=== PATIENT | male | born 1955 | race Caucasian/White ===

== ENCOUNTER 2020-05-01 12:29 | Outpatient (CLI) | payer MEDICARE, SELFPAY ==
--- NOTE | 2020-05-01 13:00 | XR_ITS ---
WS: [id number] SHOULDER RIGHT TECHNIQUE: 3 views of the right shoulder CLINICAL INFORMATION: PAIN IN RIGHT SHOULDER COMPARISON: None. FINDINGS: Mild degenerative arthritis at the AC joint. Normal glenohumeral joint. Moderate narrowing of the sub acromial space. No acute fractures. XR/XR shoulder RT min 2V* [id number] IMPRESSION: 1. Mild degenerative arthritis AC joint. 2. Moderate rotator cuff arthropathy.
== END 2020-05-01 12:30 | disposition home or self-care (01) ==
LOC: RADWPI 12:37
PROVIDERS: PCP Family Medicine; Visit Provider Family Medicine
DX: M19.011 Primary osteoarthritis, right shoulder (principal)
CPT/HCPCS: 73030

== ENCOUNTER 2020-05-04 10:22 | Outpatient (CLI) | payer MEDICARE, SELFPAY ==
--- NOTE | 2020-05-04 10:27 | MM_ITS ---
WS: [id number] BILATERAL DIGITAL DIAGNOSTIC MAMMOGRAM MAMMOGRAPHY WITH CAD CLINICAL INFORMATION: RT BREAST LUMP COMPARISON: None. TECHNIQUE: Bilateral CC, MLO, and ML views. FINDINGS: Scattered fibroglandular densities bilaterally. Palpable marker right breast at the areola. Lobulated soft tissue lesion measuring 2.7 x 2.1 cm deep to the palpable marker. Ultrasound is pending. Left breast is unremarkable. ULTRASOUND BREAST RIGHT TECHNIQUE: Ultrasound right breast focused area of concern. CLINICAL INFORMATION: RT BREAST LUMP COMPARISON: None. FINDINGS: Ultrasound right breast area of concern at the areola. There is a soft tissue lobulated mass with pro minent internal vascularity with some surrounding ductal dilatation or cystic change. This measures a pproximately 3.2 x 2.2 x 2.7 CM. This is suspicious for neoplasm and recommend further evaluation ult rasound-guided biopsy. MM/[place] [id number] IMPRESSION: BI-RADS: 4-Suspicious Finding-Biopsy Should Be Considered FOLLOW UP: US Guided Biopsy Recommended Recommend ultrasound-guided biopsy of the PALPABLE right breast lesion
== END 2020-05-04 10:23 | disposition home or self-care (01) ==
LOC: RADSHAW 10:26
PROVIDERS: PCP Family Medicine; Visit Provider Family Medicine
DX: N63.41 Unspecified lump in right breast, subareolar (principal)
CPT/HCPCS: 76642; 77066

== ENCOUNTER 2020-05-21 12:30 | Outpatient (CLI) | payer MEDICARE, SELFPAY ==
--- NOTE | 2020-05-21 12:42 | US_ITS ---
WS: [id number] ULTRASOUND-GUIDED RIGHT BREAST BIOPSY CLINICAL INFORMATION: LUMP IN R BREAST COMPARISON: None. FINDINGS: The procedure including risks, benefits, and complications were discussed with the patient who agreed to proceed. Using sterile technique patient was prepped and draped in the usual sterile fashion. Aft er 1% lidocaine utilizing real-time ultrasound guidance 5 14-gauge cores were obtained of the right b reast lesion at the areola . Subsequently a titanium clip was placed in the biopsy cavity. No immedia te complications. PATHOLOGY DEMONSTRATES: -Invasive ductal carcinoma. -Gardner Pang grade 2 (score 7). -Ancillary studies have been performed US/[place] [id number] IMPRESSION: 1. Uncomplicated ultrasound-guided right breast biopsy. 2. The pathology demonstrates invasive ductal carcinoma. BI-RADS: 6-Known Biopsy-Proven Malignancy FOLLOW UP: See Report RECOMMEND BREAST SURGERY AND ONCOLOGY CONSULTATION.
[2020-05-28 12:33] LABS: Miscellaneous Test See Scanned Lab Rpt
== END 2020-05-21 12:31 | disposition home or self-care (01) ==
LOC: RAD 12:33
PROVIDERS: PCP Family Medicine; Visit Provider Family Medicine
DX: C50.021 Malignant neoplasm of nipple and areola, right male breast (principal)
CPT/HCPCS: 19083; 88305; 88361; 88367; 88374

== ENCOUNTER → 2020-12-20 10:43 | Outpatient (BNVA) | payer MEDICARE, SELFPAY | PROVIDERS: PCP Family Medicine; Visit Provider Surgery | DX: Z20.822 Contact with and (suspected) exposure to COVID-19 (principal) | CPT/HCPCS: 87635 ==

== ENCOUNTER 2020-12-27 07:28 | Day surgery (SDC) | payer MEDICARE, SELFPAY ==
[2020-12-21 13:22] VITALS: BMI 40.4
[2020-12-27 07:48] VITALS: BP 160/97; PULSE 60; RESP 18; TEMP 36.4; O2SAT 99
--- NOTE | 2020-12-27 07:54 | ANES.PREANE2 ---
Pre-Anesthetic Assessment Pre-Anesthetic Assessment: Height/Weight: Height 1.8 m Weight 131.542 kg Temp Pulse Resp BP Pulse Ox 97.5 F L 60 18 160/97 99 12/27/20 07:48 12/27/20 07:48 12/27/20 07:48 12/27/20 07:48 12/27/20 07:48 Preop Diagnosis: screening colonoscopy Proposed Procedure: Operation Date: 12/27/20 08:45 Proposed Procedures p Colonoscopy 54986 R19.5(Not Applicable) - Min Hodge MD Was Beta Andrés taken within 24 hours: Yes Last intake: Intake Last Liquid Date 12/26/20 Last Liquid Time 20:00 Last Solid Date 12/26/20 Last Solid Time 20:00 Social: Social History: No alcohol and No tobacco Exam: Pre-Anes Outpt Exam: alert, oriented x 3, clear to auscultation bilaterally and regular rate & rhythm Airway: Submandibular: WNL Cervical ROM: WNL MP: 2 Dentition: Chipped Additional comments: Many missing nothing loose History/ROS: No significant history except as noted and No significant complaints Pulmonary: Pulmonary: None reported CV/HEM: CV/HEM: HTN : : None reported Hepatic: Hepatic: None reported GI: GI: GERD Metabolic: Metabolic: Morbid obesity Musc/skel: Musc/skel: None reported Neuropsych: Neuropsych: None reported Anesthetic Plan: ASA status: 3 Anesthesia: Anesthesia Evaluation and MAC Risk of > 500 ml blood loss (7ml/kg in children): No PFSH Anesthesia PFSH: Medical History (Updated 12/17/20 @ 09:07 by Min Hodge MD) Erectile dysfunction History of breast cancer in male Hypercholesteremia Hypertension Surgical History (Updated 12/17/20 @ 09:07 by Min Hodge MD) History of lymph node excision 17, at time of mastectomy History of mastectomy, total History of shoulder surgery Right Family History (Updated 12/17/20 @ 08:56 by RAMA Lizarraga) Denies family history of Anesthesia complication Bleeding disorder Social History Smoking and tobacco status: never smoked Data Anesthesia Cardiac Studies: No Data to Display
[2020-12-27] MEDS: sodium chloride 0.9% 1,000 ML 30 ML IV (08:02)
--- NOTE | 2020-12-27 08:33 | W.PM.OPSUD ---
Surgery/Procedure H&P Update DATE OF PROCEDURE: December 27, 2020 DATE H&P PERFORMED: 12/17/20 H&P UPDATE INFORMATION: I have reviewed H&P completed within last 30 days, I have examined patient prior to procedure and No changes to prior documentation PREOP DIAGNOSIS: screening colonoscopy PLANNED PROCEDURE: Operation Date: 12/27/20 08:45 Proposed Procedures p Colonoscopy 78005 R19.5(Not Applicable) - Min Hodge MD
[2020-12-27 09:37] VITALS: BP 163/98; PULSE 97; RESP 18; TEMP 36.1; O2SAT 94
[2020-12-27 09:59] VITALS: BP 124/89; PULSE 57; RESP 18; O2SAT 96
== END 2020-12-27 10:05 | disposition home or self-care (01) ==
PROVIDERS: PCP Family Medicine; Visit Provider Surgery
PROC: 0DJD8ZZ Inspection of Lower Intestinal Tract, Via Natural or Artificial Opening Endoscopic (ICD-10-PCS; CPT 45378; principal; 2020-12-27 08:45)
DX: Z12.11 Encounter for screening for malignant neoplasm of colon (principal); D12.2 Benign neoplasm of ascending colon; K57.30 Diverticulosis of large intestine without perforation or abscess without bleeding; K64.8 Other hemorrhoids; D12.8 Benign neoplasm of rectum; I10 Essential (primary) hypertension; K21.9 Gastro-esophageal reflux disease without esophagitis; E66.01 Morbid (severe) obesity due to excess calories; Z68.41 Body mass index [BMI] 40.0-44.9, adult; E78.00 Pure hypercholesterolemia, unspecified
CPT/HCPCS: 45380; 45385; 88305; 96360; 96361; J2704; J3490; J7030

== ENCOUNTER 2024-02-28 14:07 | Emergency (ER) | payer MEDICARE, SELFPAY ==
--- NOTE | 2024-02-28 14:13 | ECG_ITS ---
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 Measurements Intervals [employer] Rate: 68 P: 18 CT: 159 QRS: 18 QRSD: 103 T: 44 QT: 414 QTc: 442 Interpretive Statements SINUS RHYTHM INTERPRETATION BASED ON A DEFAULT AGE OF 40 YEARS No previous ECG available for comparison Electronically Signed On 02-28-2024 18:46:09 ENERGY ADVISOR by Junaid Tariq M.D. [id number]
[2024-02-28 14:17] VITALS: PULSE 67; RESP 18; TEMP 37; O2SAT 99; BMI 41.1
--- NOTE | 2024-02-28 14:37 | XRR_ITS ---
PROCEDURE INFORMATION: Exam: XR Chest Exam date and time: 02/28/2024 2:53 PM Age: 68 years old Clinical indication: Chest pressure; Prior surgery; Surgery date: 6+ months; Surgery type: Mastectomy-male; Shoulder-right; Patient HX: PT arrives pov with complaint of dizziness starting at 0830 this morning. PT states he was working in the [employer]. PT states he notices the dizziness more when exerting himself. PT denies cardiac HX. PT states he has HX of HTN. PT reports more back pain than normal. PT denies chest pain and SOB. PT states he was seen at urgent care and was told to come here because of an abnormal ekg. PT is alert and oriented with even, unlabored respirations with patent airway. PT denies n/v. PT reports headache and states he does not have headaches. TECHNIQUE: Imaging protocol: Radiologic exam of the chest. Views: 1 view. COMPARISON: CR XR shoulder RT min 2V* [id number] 05/01/2020 1:22 PM FINDINGS: Lungs: Unremarkable. No consolidation. Pleural spaces: Unremarkable. No pleural effusion. No pneumothorax. Heart/Mediastinum: Heart size not optimally evaluated with a single AP view of the chest. Bones/joints: Unremarkable. Soft tissues: Right axillary surgical clips. XR/XR chest 1V portable [id number] IMPRESSION: No evidence for acute cardiopulmonary disease.
[2024-02-28 14:41] VITALS: BP 196/96; PULSE 71; O2SAT 98
[2024-02-28 14:52] VITALS: BP 176/96; PULSE 65; O2SAT 98
[2024-02-28 15:10] LABS: Basophils % 0.5 %; Eosinophils # 0.4 10^3/uL (0.0-0.8); Eosinophils % 4.3 %; Lymphocytes # 1.7 10^3/uL (0.8-4.8); Lymphocytes % 20.1 %; Mean Corpuscular HGB Conc 33.2 g/dL (30-55); Mean Corpuscular Hemoglobin 29.6 pg (27-33); Mean Corpuscular Volume 89.4 fl (82-101); Mean Platelet Volume 10.2 fL (7.4-10.4); Monocytes # 0.7 10^3/uL (0.2-0.9); Neutrophils # 5.47 10^3/uL (1.8-7.7); Neutrophils % 66.7 %; Nucleated Red Blood Cells % 0 %; Platelet Count 160 10^3/cmm (157-399); Red Blood Count 4.25 10^6/uL (3.85-5.65); Red Cell Distribution Width 11.9 % (12.1-15.1)
[2024-02-28 15:19] VITALS: BP 164/77; PULSE 65; O2SAT 98
[2024-02-28 15:25] LABS: D Dimer 0.42 ug/mLFEU (0-0.59)
[2024-02-28 15:27] LABS: Troponin(5th) Baseline 12 ng/L (0-15)
--- NOTE | 2024-02-28 15:31 | CTR_ITS ---
PROCEDURE INFORMATION: Exam: CTA Abdomen and Pelvis Without And With Contrast Exam date and time: 02/28/2024 4:12 PM Age: 68 years old Clinical indication: Other: Mid back pain; Additional info: Back, pain, near syncope, wide mediastinum TECHNIQUE: Imaging protocol: Computed tomographic angiography of the abdomen and pelvis without and with contrast. Exam focused on the arteries. 3D rendering (Not supervised by radiologist): MIP and/or 3D reconstructed images were created by the technologist. Radiation optimization: All CT scans at this facility use at least one of these dose optimization techniques: automated exposure control; mA and/or kV adjustment per patient size (includes targeted exams where dose is matched to clinical indication); or iterative reconstruction. Contrast material: OMNI 350; Contrast volume: 100 ml; Contrast route: INTRAVENOUS (IV); COMPARISON: CR (CHEST, ) 02/28/2024 2:53 PM RADIATION DOSE METRICS: Total DLP (mGy-cm): 1617.74 FINDINGS: Coronary arteries: Multivessel atherosclerotic disease which involves the coronary arteries. Aorta: Aortic root is mildly dilated measuring 4.1 cm. Ascending thoracic aorta is normal in caliber measuring 3.7 cm. No dissection. Celiac trunk and mesenteric arteries: There is calcified plaque at the celiac trunk origin with mild narrowing. Atherosclerotic plaque is present in the superior and inferior mesenteric artery origins without significant stenosis. Renal arteries: There is atherosclerotic plaque in the proximal right renal artery with krhu-sk-skujoszl stenosis. Left renal artery is normal. Right iliac arteries: Scattered atherosclerotic plaque. No occlusion or significant stenosis. Left iliac arteries: Scattered atherosclerotic plaque. No occlusion or significant stenosis. Liver: No mass. Gallbladder and biliary ducts: The gallbladder is contracted. Pancreas: Unremarkable. No mass. No ductal dilation. Spleen: Unremarkable. No splenomegaly. Adrenal glands: Unremarkable. No mass. Kidneys and ureters: Subcentimeter left renal cyst has benign features. Follow-up is not necessary. Stomach and bowel: There is diverticulosis of the colon without evidence of diverticulitis. Appendix: A normal appendix is identified. Intraperitoneal space: Unremarkable. No free air. No significant fluid collection. Lymph nodes: Unremarkable. No enlarged lymph nodes. Urinary bladder: Unremarkable. No mass. Reproductive: There are calcifications in the prostate gland. Bones/joints: There are degenerative changes in the visualized spine.There are diffuse enthesopathic changes consistent with benign diffuse idiopathic skeletal hyperostosis (DISH). Soft tissues: There is a lipoma in the right subscapularis muscle. CT/CT ang [facility] [id number] IMPRESSION: 1. Aortic root is mildly dilated measuring 4.1 cm.Recommend clinical assessment and follow-up. 2. There is calcified plaque at the celiac trunk origin with mild narrowing. 3. There is atherosclerotic plaque in the proximal right renal artery with awyj-vt-vgiweqsj stenosis. 4. There is a lipoma in the right subscapularis muscle.
[2024-02-28 15:35] LABS: Alanine Aminotransferase 16 U/L (0-41); Albumin Level 3.9 g/dL (3.5-5.2); Alkaline Phosphatase 59 U/L (40-130); Anion Gap 15.7 (5-19); Aspartate Amino Transferase 17 U/L (0-40); Blood Urea Nitrogen 23 mg/dL (8-23); Calcium 8.7 mg/dL (8.5-10.5); Carbon Dioxide 23 mmol/L (22-29); Chloride 104 mmol/L (98-107); Creatinine Clr Calc Pharmacy 88.4846; Globulin 2.2 g/dL (1.3-4.6); Glomerular Filtration Rate 66.4 mL/min (90-130); Glucose 130 mg/dL (65-115); Osmolality Calculated 293 mOsm/kg (285-295); Potassium 3.7 mmol/L (3.5-5.1); Sodium 139 mmol/L (136-145); Total Bilirubin 0.2 mg/dL (0.15-1.2); Total Protein 6.1 g/dL (6.6-8.7)
[2024-02-28] MEDS: iohexol 350 mg/mL 500 mL Btl (per mL) IV (16:12)
--- NOTE | 2024-02-28 16:26 | ECG_ITS ---
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 Measurements Intervals [place] Rate: 67 P: -26 DC: 115 QRS: 34 QRSD: 97 T: 57 QT: 426 QTc: 451 Interpretive Statements SINUS RHYTHM WITH SHORT DC INTERVAL WITH OCCASIONAL VENTRICULAR PREMATURE COMPLEXES MINIMAL ST DEPRESSION [0.025+ mV ST DEPRESSION] Compared to ECG 02/28/2024 14:13:55 Ventricular premature complex(es) now present Short DC interval now present ST (T wave) deviation now present Electronically Signed On 02-28-2024 18:58:17 ACCOUNTANT SYSTEMS by Junaid Tariq M.D. [id number]
[2024-02-28 16:30] VITALS: BP 170/95; PULSE 67; O2SAT 97
[2024-02-28 17:45] LABS: Troponin 5 2HR 12.73 ng/L (0-15); Troponin 5 2HR Delta 0.73 ABS# (0-10)
--- NOTE | 2024-02-28 17:48 | W.ED.DIZZY ---
HPI - Dizziness General: Chief Complaint: Dizziness Stated Complaint: Sob- midly (urgent care) Time Seen by Provider: 02/28/24 14:37 History of Present Illness: HPI Narrative: This patient is a 68 year old presenting with symptoms of dizziness and lightheadedness. He also had pain in his upper back between his shoulder blades. He felt that was muscular pain and having someone rub the muscle seemed to help. That had been going on for several days. He has a history of some hypertension and also has a history of breast cancer - currently s/p mastectomy and lymph node dissection and on tamoxifen. He was driving this morning when the lightheadedness and dizziness started. It was severe enough that he pulled over on the side of the road. He denies chest pain, palpitations, vision changes, nausea, sweating or shortness of breath. The symptoms passed and he continued to his destination. He was going to cut wood - and did some work but stopped after having another episode. He doesn't really think the work brought on the second episode. He was concerned and got back in his truck to drive home. The symptoms happened one more time. The events were between about 8:30 and 11 - and he has not had any further episodes since. He reports feeling fine now. Related Data Home Medications Medication Instructions Recorded Confirmed hydrochlorothiazide 25 mg tablet 25 mg PO DAILY 12/17/20 02/28/24 lisinopril 20 mg tablet 20 mg PO DAILY 12/17/20 02/28/24 loratadine 10 mg tablet 10 mg PO DAILY 12/17/20 02/28/24 metoprolol tartrate 50 mg tablet 50 mg PO BID 12/17/20 02/28/24 sildenafil 50 mg tablet 50 mg PO DAILY PRN other 12/17/20 02/28/24 simvastatin 20 mg tablet 20 mg PO DAILY 12/17/20 02/28/24 tamoxifen 20 mg tablet 20 mg PO DAILY 12/17/20 02/28/24 Allergies Allergy/AdvReac Type Severity Reaction Status Date / Time Penicillins Allergy Unknown Verified 02/28/24 13:23 PFSH ED PFSH: Medical History Erectile dysfunction History of breast cancer in male Hypercholesteremia Hypertension Surgical History Status post colonoscopy (12/27/20) Diverticulosis, ascending colon polyp x3, internal hemorrhoids History of lymph node excision 17, at time of mastectomy History of mastectomy, total History of shoulder surgery Right Family History Denies family history of Anesthesia complication Bleeding disorder Social History Smoking and tobacco/nicotine status: unknown if used tobacco/nicotine Physical Exam Const: COMMON NORMALS: no acute distress, patient oriented x3, no limitations and alert GENERAL APPEARANCE: cooperative and comfortable HENMT: HEAD & SCALP: normal to inspection FACE & SINUS: normal facial exam Eye: GENERAL EYE: appearance normal, both eyes and all related structures Neck/C-Spine: COMMON NORMALS: supple, no meningeal signs and no JVD Chest: COMMONS NORMALS: normal inspection of the chest Resp: COMMON NORMALS: normal respiratory effort, No use of accessory muscles and clear to auscultation bilaterally AUSCULTATION: clear to auscultation bilaterally Cardio: COMMON NORMALS: no JVD, regular rate, regular rhythm and No murmurs present (Cardio) RATE: regular rate RHYTHM: regular rhythm GI: COMMON NORMALS: Normal to inspection, nondistended, normoactive bowel sounds present, Soft to palpation and non-tender INSPECTION: Yes normal to inspection AUSCULTATION: Yes normoactive bowel sounds PALPATION: Yes Soft to palpation Back/Pelvis: COMMON NORMALS: thoracic and lumbar spine normal to inspection Extremity: COMMON NORMALS: normal to inspection Neuro: COMMON NORMALS: patient oriented x3, moves all extremities, no focal motor deficits and no sensory deficits noted SENSORIUM/ORIENTATION: Yes alert MENINGEAL SIGNS: Yes no meningeal signs Psych: COMMON NORMALS: mental status grossly normal, cooperative and normal affect Skin: COMMON NORMALS: no rashes or lesions noted and turgor normal GENERAL SKIN EXAM: no rashes or lesions noted and turgor normal Course Vital Signs: Vital signs: Vital Signs Temperature 98.6 F 02/28/24 14:17 Pulse Rate 67 02/28/24 16:30 Respiratory Rate 18 02/28/24 14:17 Blood Pressure 170/95 02/28/24 16:30 Pulse Oximetry 97 02/28/24 16:30 Oxygen Delivery Me thod Room Air 02/28/24 16:30 MDM - Dizziness Medical Decision Making Concerning episodes of lightheadedness and dizziness - but no associated symptoms at the time. All symptoms are gone now. Also some concern regarding the upper back pain - as potential for aortic pathology. Work up in the ED negative including troponins, EKG, CT angio chest. He was feeling fine and there does not appear to be any indication for the need for admission. Cause of his symptoms unclear. Lab Data 02/28/24 15:00 02/28/24 15:00 Radiology Impressions Chest X-Ray 02/28/24 14:37 IMPRESSION: No evidence for acute cardiopulmonary disease. Chest/Abdomen/Pelvis CTA 02/28/24 15:31 IMPRESSION: 1. Aortic root is mildly dilated measuring 4.1 cm.Recommend clinical assessment and follow-up. 2. There is calcified plaque at the celiac trunk origin with mild narrowing. 3. There is atherosclerotic plaque in the proximal right renal artery with vcqd-bg-lsdxeait stenosis. 4. There is a lipoma in the right subscapularis muscle. Laboratory Results WBC 8.20 10^3/uL (3.29-11.43) 02/28/24 15:00 RBC 4.25 10^6/uL (3.85-5.65) 02/28/24 15:00 Hgb 12.60 g/dL (11.27-16.99) 02/28/24 15:00 Hct 38.0 % (37-53) 02/28/24 15:00 MCV 89.4 fl (82-101) 02/28/24 15:00 MCH 29.6 pg (27-33) 02/28/24 15:00 MCHC 33.2 g/dL (30-55) 02/28/24 15:00 RDW 11.9 % (12.1-15.1) L 02/28/24 15:00 Plt Count 160 10^3/cmm (157-399) 02/28/24 15:00 MPV 10.2 fL (7.4-10.4) 02/28/24 15:00 Neut % (Auto) 66.7 % 02/28/24 15:00 Lymph % (Auto) 20.1 % 02/28/24 15:00 [place] % (Auto) 8.0 % 02/28/24 15:00 Eos % (Auto) 4.3 % 02/28/24 15:00 Baso % (Auto) 0.5 % 02/28/24 15:00 Neut # (Auto) 5.47 10^3/uL (1.8-7.7) 02/28/24 15:00 Lymph # (Auto) 1.7 10^3/uL (0.8-4.8) 02/28/24 15:00 [place] # (Auto) 0.7 10^3/uL (0.2-0.9) 02/28/24 15:00 Eos # (Auto) 0.4 10^3/uL (0.0-0.8) 02/28/24 15:00 Baso # (Auto) 0.0 10^3/uL (0.0-0.1) 02/28/24 15:00 Nucleated RBC % (auto) 0 % 02/28/24 15:00 Nucleated RBCs # 0.0 /100WBC 02/28/24 15:00 D-Dimer 0.42 ug/mLFEU (0-0.59) 02/28/24 15:00 Sodium 139 mmol/L (136-145) 02/28/24 15:00 Potassium 3.7 mmol/L (3.5-5.1) 02/28/24 15:00 Chloride 104 mmol/L (98-107) 02/28/24 15:00 Carbon Dioxide 23 mmol/L (22-29) 02/28/24 15:00 Anion Gap 15.7 (5-19) 02/28/24 15:00 BUN 23 mg/dL (8-23) 02/28/24 15:00 Creatinine 1.1 mg/dL (0.7-1.2) 02/28/24 15:00 GFR Calculation 66.4 mL/min (90-130) L 02/28/24 15:00 Glucose 130 mg/dL (65-115) H 02/28/24 15:00 Calculated Osmolality 293 mOsm/kg (285-295) 02/28/24 15:00 Calcium 8.7 mg/dL (8.5-10.5) 02/28/24 15:00 Total Bilirubin 0.2 mg/dL (0.15-1.2) 02/28/24 15:00 AST 17 U/L (0-40) 02/28/24 15:00 ALT 16 U/L (0-41) 02/28/24 15:00 Alkaline Phosphatase 59 U/L (40-130) 02/28/24 15:00 Troponin T Baseline 12 ng/L (0-15) 02/28/24 15:00 Troponin T 120 Minute 12.73 ng/L (0-15) 02/28/24 17:20 Delta Troponin T 0.73 ABS# (0-10) 02/28/24 17:20 Total Protein 6.1 g/dL (6.6-8.7) L 02/28/24 15:00 Albumin 3.9 g/dL (3.5-5.2) 02/28/24 15:00 Globulin 2.2 g/dL (1.3-4.6) 02/28/24 15:00 All radiology interpretation(s) finalized by discharge Discharge Plan Discharge Patient Disposition: Home Clinical Impression: Dizziness, Near syncope, Musculoskeletal back pain, Hypertension Condition: Stable Prescriptions: No Action hydrochlorothiazide 25 mg tablet 25 mg PO DAILY lisinopril 20 mg tablet 20 mg PO DAILY loratadine 10 mg tablet 10 mg PO DAILY metoprolol tartrate 50 mg tablet 50 mg PO BID sildenafil 50 mg tablet 50 mg PO DAILY PRN (Reason: other) Rx Instructions: administer 30 minutes to 4 hours before activity simvastatin 20 mg tablet 20 mg PO DAILY tamoxifen 20 mg tablet 20 mg PO DAILY Discharge Orders: Discharge ED (Routine); Ordered 02/28/24 Ordered By: Philly Garrison Referrals: Hanna Watkins MD [Primary Care Provider] - Patient Instructions: Opioid Safety, Pain Management Activity Restrictions/Additional Instructions: Take it easy for the next few days. Follow-up with Dr. Watkins to discuss blood pressure management. Return to the ER if further episodes occur or if any new or other concerning symptoms begin. Coding Level of Care Code ED Service And Repair Supervisor for Marisol Zee
== END 2024-02-28 18:03 | disposition home or self-care (01) ==
PROVIDERS: Emergency Provider Emergency Medicine; PCP Family Medicine
DX: R42 Dizziness and giddiness (principal); R55 Syncope and collapse; M54.9 Dorsalgia, unspecified; I10 Essential (primary) hypertension; Z85.3 Personal history of malignant neoplasm of breast
CPT/HCPCS: 36415; 71045; 71275; 74174; 80053; 84484; 85025; 85378; 93005; 99285

== ENCOUNTER 2024-04-15 09:15 | Outpatient (CLI) | payer MEDICARE, SELFPAY ==
[2024-04-15 09:43] VITALS: BMI 40.4
--- NOTE | 2024-04-15 09:45 | ECG_ITS ---
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 Baseline heart rate was 74 beats per minute. Baseline blood pressure was 143/101 millimeters of mercury. Target heart rate was 151 beats per minute. Maximum heart rate achieved was 139, which was 92 % of the target heart rate. Maximum blood pressure was 201/112 millimeters of mercury. Total exercise time was 2 minutes 2 seconds. Maximum METs achieved was 4.6, maximum VO2 was 16.1. The reason for ending the test was maximum effort achieved. The patient complained of shortness of breath during the stress test, which then resolved at the end of the test. ELECTROCARDIOGRAM: BASELINE: Showed sinus rhythm, normal axis, no significant ST-T changes at the baseline noted. EXERCISE: At the peak exercise level, no significant ST-T changes suggestive of ischemia noted. RECOVERY: During the recovery period, heart rate dropped appropriately. No significant ST-T changes in the recovery suggestive of ischemia noted. PVCs noted, PACs noted CONCLUSION: 1. Exercise capacity poor. 2. Heart rate response was tachycardic. 3. Blood pressure response was hypertensive. 4. Symptoms not suggestive of ischemia. 5. Electrocardiogram portion of the stress test was not suggestive of ischemia. Electronically Signed On 05-02-2024 22:41:35 CREATIVE PROJECT MANAGER by FLORENCIA STONE [id number]
--- NOTE | 2024-04-15 09:46 | NMCV_ITS ---
NM abran perf SPECT r/s* [id number] Avinash Kinsey Age: 68 Gender: M : 1955 Exam Date: 04/15/2024 10:11 Ordering Phys: Hanna Watkins MD Technologist: ADRIANO Kerr Exam Location: [facility] Indications: cp STRESS TEST Please see separate stress test report in [employer] for full findings IMAGE PROTOCOL Rest/Stress 1 Exercise Day Radiopharmaceutical Dose (mCi) Administration Site Administered by Rest: Tc-99m 10.4 IV Marnie Mccann, REGIONAL PRODUCTION MANAGER Sestamibi Stress:Tc-99m 32.3 IV Marnie Rauschgle, REGIONAL PRODUCTION MANAGER Sestamibi Rest: 15-Apr-2024 60 Discovery 630 Stress: 15-Apr-2024 15 Discovery 630 Radiopharmaceutical was injected at 88 % maximum heart rate. Images obtained in supine and prone position. SPECT RESULTS Technical Quality: Good Raw Data Analysis: Normal Image Corrections: No attenuation or motion correction applied Summed Stress Score: 0 Summed Rest Score: 2 Summed Difference Score: 0 PERFUSION FINDINGS Large area of patchy decreased tracer uptake noted in basal to distal inferior wall suggestive of old myocardial infarction versus scarring, this study is negative for ischemia FUNCTIONAL RESULTS (calculated via Gated SPECT) Stress Image LV EF (%): 58 Stress EDV (mL):137 TID: 0.97 Stress ESV (mL):57 FUNCTIONAL FINDINGS: There is normal left ventricular systolic function. IMPRESSIONS Large area of patchy decreased tracer uptake noted in basal distal inferior wall without any reversibility suggestive of possible old myocardial infarction versus scarring. This study is negative for ischemia. Santiago Biswas MD (Electronically Signed) Final Date: 15 April 2024 22:01 S
[2024-04-15 11:15] VITALS: BP 188/112; PULSE 91
== END 2024-04-15 09:16 | disposition home or self-care (01) ==
LOC: CDL 09:17
PROVIDERS: PCP Family Medicine; Visit Provider Family Medicine
DX: R07.9 Chest pain, unspecified (principal); R93.1 Abnormal findings on diagnostic imaging of heart and coronary circulation
CPT/HCPCS: 78452; 93017; A9500

== ENCOUNTER 2024-04-15 14:03 | Outpatient (CLI) | payer MEDICARE, SELFPAY ==
--- NOTE | 2024-04-15 14:05 | USCV_ITS ---
Avinash Kinsey Age: 68 Gender: M : 1955 Exam Date: 04/15/2024 14:18 Ordering Phys: Hanna Watkins MD Technologist: CT Exam Location: [facility] [place] Indication: BP: 140 / 82 HR: 80 Rhythm: Sinus Technical Quality: Adequate MEASUREMENTS (Male / Female) Normal Values 2D ECHO LVOT Diameter 2.1 cm LV Ejection Fraction MOD 4C 53.7 % LV Ejection Fraction MOD 2C 58.1 % LV Ejection Fraction 2C AL 60.6 % LA Diameter 2.9 cm RA Systolic Volume 4C AL 42.5 ml RA Systolic Volume 4C MOD 40.5 ml LA Sys Volume AL 80.4 cm cubed LA Sys Volume Index AL 30.8 cm cubed/m squared Aorta at Sinotubular Diameter 2.5 cm M-MODE LA Ao Ratio MM 1.3 AV Cusp Separation MM 1.4 cm DOPPLER AV Peak Velocity 196.0 cm/s LVOT Peak Velocity 102.0 cm/s AV Area Cont Eq vti 2.4 cm squared AV Area Cont Eq pk 1.7 cm squared MV Peak Velocity 94.0 cm/s MV Area PHT 3.2 cm squared Mitral E to A Ratio 0.9 TR Peak Velocity 279.0 cm/s TR Peak Gradient 31.1 mmHg TV Peak E Velocity 66.0 cm/s PV Peak Velocity 154.5 cm/s FINDINGS Left Ventricle Normal left ventricular size, systolic function and wall thickness, with no regional wall motion abnormalities. Left ventricular ejection fraction is estimated at 60 %. Grade I/IV diastolic dysfunction (abnormal relaxation filling pattern), normal to mildly elevated filling pressures. Right Ventricle The right ventricle is normal in size and function. Right Atrium The right atrium is normal in size. Left Atrium Moderately increased left atrial size. Mitral Valve Mildly thickened mitral valve. No mitral valve stenosis. Trace mitral valve regurgitation. Aortic Valve Thickened aortic valve. No aortic valve stenosis. Trace aortic valve regurgitation. Tricuspid Valve Trace tricuspid valve regurgitation. Pulmonic Valve Mild pulmonary valve regurgitation. Pericardium Normal pericardium without effusion. Aorta Normal ascending aorta dimension. IVC The inferior vena cava appears normal. CONCLUSIONS Normal left ventricular size, systolic function and wall thickness, with no regional wall motion abnormalities. Left ventricular ejection fraction is estimated at 60 %. Grade I/IV diastolic dysfunction (abnormal relaxation filling pattern), normal to mildly elevated filling pressures. No significant valve abnormalities. There is no pericardial effusion. Right atrial pressure is around 5 mm of mercury. Santiago Biswas MD (Electronically Signed) Final Date: 15 April 2024 23:16 S
== END 2024-04-15 14:04 | disposition home or self-care (01) ==
PROVIDERS: PCP Family Medicine; Visit Provider Family Medicine
DX: R06.00 Dyspnea, unspecified (principal); R55 Syncope and collapse; R93.1 Abnormal findings on diagnostic imaging of heart and coronary circulation; I51.7 Cardiomegaly; I35.8 Other nonrheumatic aortic valve disorders; I37.1 Nonrheumatic pulmonary valve insufficiency
CPT/HCPCS: 93306

== ENCOUNTER → 2024-05-27 15:48 | Outpatient (BNVA) | payer MEDICARE, SELFPAY | PROVIDERS: PCP Family Medicine; Visit Provider Registered Nurse Neonatal Intensive Care | DX: M19.041 Primary osteoarthritis, right hand (principal) | CPT/HCPCS: 73130 ==

== ENCOUNTER 2024-08-31 11:38 | Outpatient (CLI) | payer MEDICARE, SELFPAY ==
--- NOTE | 2024-08-31 11:44 | XR_ITS ---
WS: [id number] XR chest 2V* [id number] REASON FOR EXAM: DRY COUGH AND SHORTNESS OF BREATH FINDINGS: Compared to the examination of 02/28/2024, there there are a reticular groundglass opacities in the right lower lung. The chest is otherwise unchanged. XR/XR chest 2V* [id number] IMPRESSION: Interval development of right lower lung opacities of unknown chronicity. Findi ngs are compatible with acute or subacute pneumonitis.
== END 2024-08-31 11:39 | disposition home or self-care (01) ==
PROVIDERS: PCP Nurse Practitioner Family; Visit Provider Nurse Practitioner Family
DX: R05.8 Other specified cough (principal); R06.02 Shortness of breath; R91.8 Other nonspecific abnormal finding of lung field
CPT/HCPCS: 71046

== ENCOUNTER 2025-03-16 12:30 | Emergency (ER) | payer MEDICARE, SELFPAY ==
[2025-03-16 12:31] VITALS: BP 235/140; PULSE 76; RESP 22; TEMP 36.6; O2SAT 99
--- NOTE | 2025-03-16 13:12 | XR_ITS ---
WS: [id number] AP and lateral soft tissue views of the neck, 03/16/2025 Clinical Data: reports trouble swallowing Comparison: None. Findings: The tracheal and hypopharyngeal air shadows appear to be patent. There is slight deviation from left to right of the trachea at the level of C7. The epiglottis shows slight swelling. There are calcifications in the regions of both carotid bifurcations. There is degenerative disc narrowing along with osteoarthritis of the cervical vertebral bodies C2-C6. XR/XR soft tissue neck [id number] Impression: 1. Slight deviation from left to right of the trachea at the C7 level. 2. Swelling of the epiglottis.
--- NOTE | 2025-03-16 13:12 | XR_ITS ---
WS: [id number] Portable AP upright chest, 03/16/2025 Clinical Data: chest pain Comparison: Two-view chest, 08/31/2024 Findings: There is minimal patchy opacity in the retrocardiac region which could represent atelectasis and/or pneumonia. No nodules, masses or effusions are seen. The heart is normal. The pulmonary vascularity is not increased. No pneumothorax is seen. XR/XR chest 1V portable [id number] Impression: Minimal patchy opacity in the retrocardiac region.
--- NOTE | 2025-03-16 13:13 | ED_ITS ---
Documented by User: GLORIA Ibarra 03/16/25 16:37 HPI - Allergic Reaction 2 General: Chief complaint: Allergic Reaction Stated complaint: throat closing / SOB Time Seen by Provider: 03/16/25 12:59 Source: patient Mode of arrival: ambulatory Limitations: no limitations History of Present Illness: HPI narrative: Patient is a nice 69-year-old male who presents to ED today along with his significant other for concerns of a possible allergic reaction. Patient states [place] in [place] when he began feeling some pain to the left side of his throat. He states it progressed to the point where he was having difficulty breathing and swallowing. Patient states he has never had anything like this before. He does chronically chew tobacco. He has no other allergic symptoms. No history of angioedema or anaphylaxis. MD complaint: allergic reaction Onset (ago): hour(s) Exposure: unknown Associated symptoms: Reports difficulty breathing and dysphagia; Deny hoarseness Severity: moderate Treatment prior to arrival: alondraadnila Previous Allergic Reaction History: none Related Data Home Medications ?Medication ?Instructions ?Recorded ?Confirmed hydrochlorothiazide 25 mg tablet 25 mg PO DAILY 08/25/24 lisinopril 20 mg tablet 20 mg PO DAILY 12/17/2007/29 loratadine 10 mg tablet 10 mg PO DAILY 12/17/2007/29 metoprolol tartrate 50 mg tablet 50 mg PO BID 12/17/20 08/25/24 sildenafil 50 mg tablet 50 mg PO DAILY PRN other 08/25/24 simvastatin 20 mg tablet 20 mg PO DAILY 12/17/2007/29 tamoxifen 20 mg tablet 20 mg PO DAILY 12/17/2007/29 Previous Rx's ?Medication ?Instructions ?Recorded clindamycin HCl 150 mg capsule 150 mg PO TID #30 caps 05/27/24 (Cleocin HCl) azithromycin 250 mg tablet See Rx Instructions PO .COM PLEX #6 08/25/24 tabs Allergies Allergy/AdvReac Type Severity Reaction Status Date / Time Penicillins Allergy Unknown Verified 03/16/25 12:36 Review of Systems 2 Const: Denies: fever(s), chills, body aches, fatigue or malaise ENMT: Reports: throat pain, odynophagia and other (trouble swallowing); Denies: uvular edema, enlarged tonsils, hoarseness, mouth pain, swelling of lips/tongue or oral sores Card: Denies: chest pain Resp: Reports: other (reports difficulty breathing) GI: Reports: dysphagia PFSH ED 2 PFSH: Medical History Erectile dysfunction History of breast cancer in male Hypercholesteremia Hypertension Surgical History Status post colonoscopy (12/27/20) Diverticulosis, ascending colon polyp x3, internal hemorrhoids History of lymph node excision 18, at time of mastectomy History of mastectomy, total History of shoulder surgery Right Family History Denies family history of Anesthesia complication Bleeding disorder Social History Smoking and tobacco/nicotine status: never used tobacco/nicotine Physical Exam 2 Const: COMMON NORMALS: no limitations, alert and well nourished GENERAL APPEARANCE: cooperative and in distress NUTRITIONAL APPEARANCE: obese O RIENTATION/CONSCIOUSNESS: Yes awake, Yes oriented to person, Yes oriented to place and Yes oriented to time OTHER: frequent throat clearing, some mild degree of dysphonia present HENMT: COMMON NORMALS: normocephalic and atraumatic HEAD & SCALP: normal to inspection, normocephalic and atraumatic FACE & SINUS: normal facial exam MOUTH: Normal oral and palatal mucosa present, lip normal, tongue normal and Normal salivary glands and ducts present THROAT: posterior oropharynx normal, tonsils normal and uvula midline; no uvular edema Neck/C-Spine: COMMON NORMALS: full ROM, no lymphadenopathy and no meningeal signs GENERAL: Yes normal visual inspection, No anterior neck swelling and No submandibular swelling Resp: COMMON NORMALS: normal respiratory effort and clear to auscultation bilaterally AUSCULTATION: clear to auscultation bilaterally Cardio: COMMON NORMALS: regular rate and regular rhythm RATE: regular rate RHYTHM: regular rhythm GI: COMMON NORMALS: Soft to palpation and non-tender PALPATION: Yes Soft to palpation Extremity: GENERAL: Yes normal exam except as noted Neuro: BENJI COMA SCALE: document GCS findings [place] coma scale eye opening: Spontaneous [place] coma scale verbal response: Orientated [place] coma scale motor response: Obey commands Benji coma scale total score: 15 COMMON NORMALS: moves all extremities, no focal motor deficits and no sensory deficits noted SENSORIUM/ORIENTATION: Yes alert, Yes oriented to person, Yes oriented to place and Yes oriented to time MENINGEAL SIGNS: Yes no meningeal signs Skin: COMMON NORMALS: no rashes or lesions noted GENERAL SKIN EXAM: no rashes or lesions noted Course 2 Consultations: Consultation #1: Rosalino Mayfield, JENN [facility] ENT-stated they would consult on him if needed if we transferred him but most of the time they would see/biopsy this as an outpatient Consultation #2: Dr. Bryan-[facility] ED physician ([facility] hospitalist wanted him to go ED to ED)- accepts transfer Vital Signs: Vital signs: Vital Signs Temperature 97.9 F 03/16/25 12:31 Pulse Rate 81 03/16/25 16:32 Respiratory Rate 20 H 03/16/25 16:32 Blood Pressure 196/121 03/16/25 16:32 Pulse Oximetry 94 03/16/25 16:32 Oxygen Delivery Me thod Room Air 03/16/25 16:32 MDM - Allergic Reaction Medical Decision Making Patient is in a 69-year-old male here believing he might be having an allergic reaction. Patient was initially given medications including Benadryl, Solu- Medrol, Epinephrine without much relief of symptoms. He did have partially somewhat improved. CT scan showing suspicion for supraglottic laryngeal carcinoma causing moderate airway narrowing. Patient has also been assessed by Dr. Justin. Symptoms at this time are stable and we do not feel he needs prophylactic intubation for airway protection. Patient will be transferred to [facility] ED as we do not feel comfortable allowing him to go home. Significant other does not feel comfortable [place] was very concerned when she brought him in as he was having difficulty breathing. Medical Records I reviewed the patient's medical records. Lab Data I reviewed the patient's lab results. 03/16/25 13:26 03/16/25 13:26 Radiology Impressions Chest X-Ray 03/16/25 13:12 Impression: Minimal patchy opacity in the retrocardiac region. Soft Tissue Neck X-Ray 03/16/25 13:12 Impression: 1. Slight deviation from left to right of the trachea at the C7 level. 2. Swelling of the epiglottis. Neck CT 03/16/25 14:04 IMPRESSION: Images are somewhat limited at the level of the supraglottic larynx and glottis due to swallowing and respiratory artifact. Findings suspicious for supraglottic laryngeal carcinoma. 1. Polyploid soft tissue mass described above involving the LEFT piriform sinus measuring 2.1 x 1.7 cm and involving the posterior supraglottic laryngeal wall. This extends to involve the LEFT greater than RIGHT aryepiglottic folds with soft tissue opacification or fluid in the LEFT vallecula. Involvement of the preepiglottic space. Mild thickening of the epiglottis. Findings suspicious for supraglottic laryngeal carcinoma. Recommend ENT consultation. 2. Induration in the surrounding supraglottic fat extending to the posterior and LEFT pharyngeal wall. Induration in the LEFT neck soft tissues about the carotid sheath. 3. A few prominent LEFT cervical lymph nodes measuring up to 8 mm. Notified GLORIA Ibarra at 03/16/2025 3:26 PM. Laboratory Results WBC 13.63 10^3/uL (3.29-11.43) H 03/16/25 13: RBC 4.77 10^6/uL (3.85-5.65) 03/16/25 13:26 Hgb 14.10 g/dL (11.27-16.99) 03/16/25 13:26 Hct 42.1 % (37-53) 03/16/25 13:26 MCV 88.3 fl (82-101) 03/16/25 13:26 MCH 29.6 pg (27-33) 03/16/25 13:26 MCHC 33.5 g/dL (30-55) 03/16/25 13:26 RDW 12.0 % (12.1-15.1) L 03/16/25 13:26 Plt Count 165 10^3/cmm (157-399) 03/16/25 13: MPV 10.4 fL (7.4-10.4) 03/16/25 13:26 Neut % (Auto) 81.0 % 03/16/25 13:26 Lymph % (Auto) 9.9 % 03/16/25 13:26 Weber % (Auto) 6.2 % 03/16/25 13:26 Eos % (Auto) 2.3 % 03/16/25 13:26 Baso % (Auto) 0.4 % 03/16/25 13:26 Neut # (Auto) 11.04 10^3/uL (1.8-7.7) H 03/16/25 13:26 Lymph # (Auto) 1.4 10^3/uL (0.8-4.8) 03/16/25 13:26 Weber # (Auto) 0.8 10^3/uL (0.2-0.9) 03/16/25 13:26 Eos # (Auto) 0.3 10^3/uL (0.0-0.8) 03/16/25 13:26 Baso # (Auto) 0.1 10^3/uL (0.0-0.1) 03/16/25 13:26 Nucleated RBC % (auto) 0 % 03/16/25 13:26 Nucleated RBCs # 0.0 /100WBC 03/16/25 13:26 Sodium 141 mmol/L (136-145) 03/16/25 13:26 Potassium 3.6 mmol/L (3.5-5.1) 03/16/25 13:26 Chloride 104 mmol/L (98-107) 03/16/25 13:26 Carbon Dioxide 27 mmol/L (22-29) 03/16/25 13:26 Anion Gap 13.6 (5-19) 03/16/25 13:26 BUN 18 mg/dL (8-23) 03/16/25 13:26 Creatinine 1.0 mg/dL (0.7-1.2) 03/16/25 13:26 GFR Calculation 73.9 mL/min (90-130) L 03/16/25 13:26 Glucose 143 mg/dL (65-115) H 03/16/25 13:26 Calculated Osmolality 296 mOsm/kg (285-295) H 03/16/25 13:26 Calcium 9.1 mg/dL (8.5-10.5) 03/16/25 13:26 Total Bilirubin 0.2 mg/dL (0.15-1.2) 03/16/25 13:26 AST 17 U/L (0-40) 03/16/25 13:26 ALT 13 U/L (0-41) 03/16/25 13:26 Alkaline Phosphatase 74 U/L (40-130) 03/16/25 13:26 Total Protein 7.3 g/dL (6.6-8.7) 03/16/25 13:26 Albumin 4.4 g/dL (3.5-5.2) 03/16/25 13:26 Globulin 2.9 g/dL (1.3-4.6) 03/16/25 13:26 All radiology interpretation(s) finalized by discharge Discharge Plan Discharge Patient Disposition: Xfer Short-Term Hosp Clinical Impression: Supraglottic mass Condition: Stable Referrals: Reanna Nieto NP [Primary Care Provider, Unknown] Print Language: Fijian Coding Level of Care Code ED Manager Compliance for Chg Fwd Documented by User: Anthony Justin DO 03/16/25 17:44 HPI - Allergic Reaction 2 General: Chief complaint: Allergic Reaction Stated complaint: throat closing / SOB Time Seen by Provider: 03/16/25 12:59 Related Data Home Medications ?Medication ?Instructions ?Recorded ?Confirmed hydrochlorothiazide 25 mg tablet 25 mg PO DAILY 08/25/24 lisinopril 20 mg tablet 20 mg PO DAILY 12/17/2007/29 loratadine 10 mg tablet 10 mg PO DAILY 12/17/2007/29 metoprolol tartrate 50 mg tablet 50 mg PO BID 12/17/20 08/25/24 sildenafil 50 mg tablet 50 mg PO DAILY PRN other 08/25/24 simvastatin 20 mg tablet 20 mg PO DAILY 12/17/2007/29 tamoxifen 20 mg tablet 20 mg PO DAILY 12/17/2007/29 Previous Rx's ?Medication ?Instructions ?Recorded clindamycin HCl 150 mg capsule 150 mg PO TID #30 caps 05/27/24 (Cleocin HCl) azithromycin 250 mg tablet See Rx Instructions PO .COM PLEX #6 05/29/25 tabs Allergies Allergy/AdvReac Type Severity Reaction Status Date / Time Penicillins Allergy Unknown Verified 03/16/25 12:36 PFSH ED 2 PFSH: Medical History Erectile dysfunction History of breast cancer in male Hypercholesteremia Hypertension Surgical History Status post colonoscopy (12/27/20) Diverticulosis, ascending colon polyp x3, internal hemorrhoids History of lymph node excision 18, at time of mastectomy History of mastectomy, total History of shoulder surgery Right Family History Denies family history of Anesthesia complication Bleeding disorder Social History Smoking and tobacco/nicotine status: never used tobacco/nicotine Physical Exam 2 Neuro: BENJI COMA SCALE: document GCS findings [place] coma scale total score: 15 Course 2 Vital Signs: Vital signs: Vital Signs Temperature 97.9 F 03/16/25 12:31 Pulse Rate 81 03/16/25 16:32 Respiratory Rate 20 H 03/16/25 16:32 Blood Pressure 196/121 03/16/25 16:32 Pulse Oximetry 94 03/16/25 16:32 Oxygen Delivery Me thod Room Air 03/16/25 16:32 MDM - Allergic Reaction Medical Decision Making Patient is in a 69-year-old male here believing he might be having an allergic reaction. Patient was initially given medications including Benadryl, Solu- Medrol, Epinephrine without much relief of symptoms. He did have partially somewhat improved. CT scan showing suspicion for supraglottic laryngeal carcinoma causing moderate airway narrowing. Patient has also been assessed by Dr. Justin. Symptoms at this time are stable and we do not feel he needs prophylactic intubation for airway protection. Patient will be transferred to [facility] ED as we do not feel comfortable allowing him to go home. Significant other does not feel comfortable either [place] and was very concerned when she brought him in as he was having difficulty breathing. Chart reviewed and patient discussed with midlevel. Agree with assessment and plan. Patient seen and examined no stridor at this time reviewed CT. She does have a mass that is impinging on the midline. Corine Zaragoza reviewed with the radiologist. Discussed further with family and we are planning transfer for consultation with ENT Lab Data 03/16/25 13:26 03/16/25 13:26 Radiology Impressions Chest X-Ray 03/16/25 13:12 Impression: Minimal patchy opacity in the retrocardiac region. Soft Tissue Neck X-Ray 03/16/25 13:12 Impression: 1. Slight deviation from left to right of the trachea at the C7 level. 2. Swelling of the epiglottis. Neck CT 03/16/25 14:04 IMPRESSION: Images are somewhat limited at the level of the supraglottic larynx and glottis due to swallowing and respiratory artifact. Findings suspicious for supraglottic laryngeal carcinoma. 1. Polyploid soft tissue mass described above involving the LEFT piriform sinus measuring 2.1 x 1.7 cm and involving the posterior supraglottic laryngeal wall. This extends to involve the LEFT greater than RIGHT aryepiglottic folds with soft tissue opacification or fluid in the LEFT vallecula. Involvement of the preepiglottic space. Mild thickening of the epiglottis. Findings suspicious for supraglottic laryngeal carcinoma. Recommend ENT consultation. 2. Induration in the surrounding supraglottic fat extending to the posterior and LEFT pharyngeal wall. Induration in the LEFT neck soft tissues about the carotid sheath. 3. A few prominent LEFT cervical lymph nodes measuring up to 8 mm. Notified GLORIA Ibarra at 03/16/2025 3:26 PM. Laboratory Results WBC 13.63 10^3/uL (3.29-11.43) H 03/16/25 13: RBC 4.77 10^6/uL (3.85-5.65) 03/16/25 13:26 Hgb 14.10 g/dL (11.27-16.99) 03/16/25 13: Hct 42.1 % (37-53) 03/16/25 13:26 MCV 88.3 fl (82-101) 03/16/25 13:26 MCH 29.6 pg (27-33) 03/16/25 13: MCHC 33.5 g/dL (30-55) 03/16/25 13: RDW 12.0 % (12.1-15.1) L 03/16/25 13:26 Plt Count 165 10^3/cmm (157-399) 03/16/25 13: MPV 10.4 fL (7.4-10.4) 03/16/25 13:26 Neut % (Auto) 81.0 % 03/16/25 13:26 Lymph % (Auto) 9.9 % 03/16/25 13:26 Weber % (Auto) 6.2 % 03/16/25 13:26 Eos % (Auto) 2.3 % 03/16/25 13:26 Baso % (Auto) 0.4 % 03/16/25 13:26 Neut # (Auto) 11.04 10^3/uL (1.8-7.7) H 03/16/25 13:26 Lymph # (Auto) 1.4 10^3/uL (0.8-4.8) 03/16/25 13:26 Weber # (Auto) 0.8 10^3/uL (0.2-0.9) 03/16/25 13:26 Eos # (Auto) 0.3 10^3/uL (0.0-0.8) 03/16/25 13:26 Baso # (Auto) 0.1 10^3/uL (0.0-0.1) 03/16/25 13:26 Nucleated RBC % (auto) 0 % 03/16/25 13: Nucleated RBCs # 0.0 /100WBC 03/16/25 13:26 Sodium 141 mmol/L (136-145) 03/16/25 13:26 Potassium 3.6 mmol/L (3.5-5.1) 03/16/25 13:26 Chloride 104 mmol/L (98-107) 03/16/25 13:26 Carbon Dioxide 27 mmol/L (22-29) 03/16/25 13:26 Anion Gap 13.6 (5-19) 03/16/25 13:26 BUN 18 mg/dL (8-23) 03/16/25 13:26 Creatinine 1.0 mg/dL (0.7-1.2) 03/16/25 13:26 GFR Calculation 73.9 mL/min (90-130) L 03/16/25 13:26 Glucose 143 mg/dL (65-115) H 03/16/25 13:26 Calculated Osmolality 296 mOsm/kg (285-295) H 03/16/25 13:26 Calcium 9.1 mg/dL (8.5-10.5) 03/16/25 13:26 Total Bilirubin 0.2 mg/dL (0.15-1.2) 03/16/25 13:26 AST 17 U/L (0-40) 03/16/25 13:26 ALT 13 U/L (0-41) 03/16/25 13:26 Alkaline Phosphatase 74 U/L (40-130) 03/16/25 13:26 Total Protein 7.3 g/dL (6.6-8.7) 03/16/25 13:26 Albumin 4.4 g/dL (3.5-5.2) 03/16/25 13:26 Globulin 2.9 g/dL (1.3-4.6) 03/16/25 13:26 Discharge Plan Discharge Patient Disposition: Xfer Short-Term Hosp Clinical Impression: Supraglottic mass Condition: Stable Referrals: Reanna Nieto NP [Primary Care Provider, Unknown] Print Language: Fijian Coding Level of Care Code ED Manager Compliance for Analig Saadia
[2025-03-16] MEDS: methylPREDNISolone sod succ 125 mg/2 mL INJ IVP ×2 (13:28→16:16)
[2025-03-16] MEDS: diphenhydrAMINE 50 mg/mL SDV 1mL 25 MG IVP (13:29)
[2025-03-16 13:34] LABS: Hematocrit 42.1 % (37-53); Hemoglobin 14.10 g/dL (11.27-16.99); Mean Corpuscular HGB Conc 33.5 g/dL (30-55); Mean Corpuscular Hemoglobin 29.6 pg (27-33); Mean Corpuscular Volume 88.3 fl (82-101); Nucleated Red Blood Cells % 0 %; Platelet Count 165 10^3/cmm (157-399); Red Blood Count 4.77 10^6/uL (3.85-5.65); White Blood Count 13.63 10^3/uL (3.29-11.43)
[2025-03-16 13:35] VITALS: BP 196/91; PULSE 97; O2SAT 96
[2025-03-16 13:53] LABS: Alanine Aminotransferase 13 U/L (0-41); Albumin Level 4.4 g/dL (3.5-5.2); Alkaline Phosphatase 74 U/L (40-130); Anion Gap 13.6 (5-19); Aspartate Amino Transferase 17 U/L (0-40); Blood Urea Nitrogen 18 mg/dL (8-23); Calcium 9.1 mg/dL (8.5-10.5); Carbon Dioxide 27 mmol/L (22-29); Chloride 104 mmol/L (98-107); Globulin 2.9 g/dL (1.3-4.6); Glucose 143 mg/dL (65-115); Osmolality Calculated 296 mOsm/kg (285-295); Potassium 3.6 mmol/L (3.5-5.1); Sodium 141 mmol/L (136-145); Total Protein 7.3 g/dL (6.6-8.7)
--- NOTE | 2025-03-16 14:04 | CT_ITS ---
WS: [id number] CT NECK TECHNIQUE: Contrast-enhanced CT of the neck with coronal and sagittal reformatted images. CLINICAL INFORMATION: trouble swallowing/breathing COMPARISON: None. DLP: 287.[address] scans at [facility] use at least one of these dose optimization techniques: automated exposure control; mA and/or kV adjustment per patient size (includes targeted exams where dose is matched to clinical indication); or iterative reconstruction. FINDINGS: Polypoid low-attenuation soft tissue mass at the level of the piriform sinuses probably arising from the LEFT piriform sinus involving the posterior laryngeal wall. This results in moderate airway narrowing at this level. Polyploid mass measures approximately 2.1 x 1.7 cm. Associated soft tissue or secretions filling the LEFT vallecula with mild thickening of the epiglottis and thickening of the LEFT greater than RIGHT aryepiglottic folds. Involvement of the preepiglottic space. Induration in the associated supraglottic laryngeal fat. Involvement of the LEFT vocal fold. True vocal cords are normal in appearance. Subglottic airway is normal in appearance. Images are somewhat limited due to swallowing or respiratory artifact at the level of the glottis and supraglottic larynx. Suspected extralaryngeal invasion with mild induration in the LEFT neck soft tissues about the LEFT carotid sheath. No evidence of drainable abscess or fluid collection. Normal posterior nasopharynx. Normal parapharyngeal fat. Parotid glands are normal. Lung apices are well aerated. Carotid bulb calcification bilaterally. Advanced spondylitic changes cervical spine. A few slightly prominent and numerous LEFT greater than RIGHT cervical lymph nodes measuring up to 8 mm. Normal RIGHT submandibular gland. Atrophic LEFT submandibular gland. Normal [place] tonsils. CT/CT neck w con* [id number] IMPRESSION: Images are somewhat limited at the level of the supraglottic larynx and glottis due to swallowing and respiratory artifact. Findings suspicious for supraglottic laryngeal carcinoma. 1. Polyploid soft tissue mass described above involving the LEFT piriform sinu s measuring 2.1 x 1.7 cm and involving the posterior supraglottic laryngeal wal l. This extends to involve the LEFT greater than RIGHT aryepiglottic folds with soft tissue opacification or fluid in the LEFT vallecula. Involvement of the p reepiglottic space. Mild thickening of the epiglottis. Findings suspicious for supraglottic laryngeal carcinoma. Recommend ENT consultation. 2. Induration in the surrounding supraglottic fat extending to the posterior a nd LEFT pharyngeal wall. Induration in the LEFT neck soft tissues about the car otid sheath. 3. A few prominent LEFT cervical lymph nodes measuring up to 8 mm. Notified GLORIA Ibarra at 03/16/2025 3:26 PM.
[2025-03-16] MEDS: iohexol 350 mg/mL 500 mL Btl (per mL) IV (14:15)
[2025-03-16] MEDS: cefepime 1,000 mg SDV 1000 MG IVP (15:01)
[2025-03-16 15:02] VITALS: BP 192/107; PULSE 83; RESP 16; O2SAT 94
[2025-03-16 16:32] VITALS: BP 196/121; PULSE 81; RESP 20; O2SAT 94
[2025-03-16] MEDS: labetalol 5 mg/mL SDV 20mL 20 MG IVP (16:41)
--- NOTE | 2025-03-16 16:46 | PC.NURSE ---
THIS NURSE TOOK OVER THIS PATIENT AT [id number]
== END 2025-03-16 17:34 | disposition short-term general hospital (02) ==
PROVIDERS: Emergency Provider Physician Assistant; PCP Nurse Practitioner Family
DX: J38.7 Other diseases of larynx (principal); Z85.3 Personal history of malignant neoplasm of breast; I10 Essential (primary) hypertension
CPT/HCPCS: 36415; 70360; 70491; 71045; 80053; 85025; 87040; 96372; 96374; 96375; 96376; 99285; J0169; J0692; J1200; J2919; J3373; J3490